=== PATIENT | female | born 1995 | race Caucasian/White ===

== ENCOUNTER 2020-02-06 22:33 | Emergency (ER) | payer OTHER, SELFPAY ==
[~2020-02-06] VITALS: Ht 162.6 cm; Wt 59.0 kg
[2020-02-06 22:58] VITALS: BP 105/69
--- NOTE | 2020-02-06 23:05 | NUR ---
PT PLACED IN TENT TO A/W MEDICAL EVALUATION.
--- NOTE | 2020-02-07 00:20 | NUR ---
PATIENT LEFT WITHOUT BEING SEEN BY DR. BUTLER. NO FURTHER CARE PROVIDED FOR PATIENT.
== END 2020-02-07 00:20 | disposition left against medical advice (07) ==
LOC: MED 22:33
DX: J02.9 Acute pharyngitis, unspecified (principal); Z53.21 Procedure and treatment not carried out due to patient leaving prior to being seen by health care provider

== ENCOUNTER 2020-05-18 01:55 | Emergency (ER) | payer OTHER, SELFPAY ==
[~2020-05-18] VITALS: Ht 162.6 cm; Wt 59.9 kg
[2020-05-18 02:02] VITALS: BP 109/67
--- NOTE | 2020-05-18 02:06 | NUR ---
PT AMBULATED TO BED 12 WITH STEADY GAIT
--- NOTE | 2020-05-18 02:12 | NUR ---
PHILIPPE CROSS AT BEDSIDE EVALUATING PT
[2020-05-18] MEDS ORDERED: NACL 0.9% 1,000 ML IV ONE (02:15)
[2020-05-18] MEDS ORDERED: ACETAMINOPHEN 325 MG TAB PO ONE (02:15)
--- NOTE | 2020-05-18 02:32 | NUR ---
25 year old female coming in for diffuse abdominal pain x 7 hours, vomiting x 1 episode and dizziness. states started only yesterday and that she is 15 weeks . G1 T0 L0. UTD prenatals. denies diarrhea or constipation. bowel sounds normoactive. abdomen firm. heart tones directly right below umbilical with 155bpm and normal. denies any other s/sx. denies any injury or trauma. connected to cardiac monitoring. pmhx: denies nka
--- NOTE | 2020-05-18 02:37 | NUR ---
pt currently states unable to provide urine. bolus running to help with providing urine.
[2020-05-18 03:17] LABS: APPEARANCE,URINE CLOUDY (CLEAR); BILIRUBIN,URINE NEGATIVE (NEGATIVE); BLOOD, URINE 3+ (NEGATIVE); COLOR,URINE YELLOW (YELLOW); LEUKOCYTE ESTERASE ,URINE 2+ (NEGATIVE); NITRITE, URINE POSITIVE (NEGATIVE); UGLUCOSE NEGATIVE (NEGATIVE)
[2020-05-18 03:27] LABS: RBC,URINE 20-50 /HPF (0-5); WBC,URINE TOO MANY TO COUNT /HPF (0-5)
[2020-05-18 03:45] LABS: BASOPHILS % (AUTO) 0.2 % (0.0-2.0); EOSINOPHILS % (AUTO) 0.4 % (0.0-4.0); HEMATOCRIT 35.3 % (36-48); HEMOGLOBIN 12.2 g/dL (12.0-16.0); LYMPHOCYTES % (AUTO) 17.2 % (20.5-51.1); MEAN CORPUSCULAR HEMOGLOBIN 30 pg (27-31); MEAN CORPUSCULAR HGB CONC 35 g/dL (33-37); MEAN CORPUSCULAR VOLUME 88.1 fL (80-94); MONOCYTES # (AUTO) 0.7 K/uL (0.8-1.0); MONOCYTES % (AUTO) 5.8 % (1.7-9.3); NEUTROPHILS # (AUTO) 8.8 K/uL (1.8-7.7); NEUTROPHILS % (AUTO) 76.4 % (42.2-75.2); PLATELET COUNT (AUTO) 199 K/uL (140-450); RED BLOOD CELL COUNT(AUTO) 4.01 MIL/uL (4.20-5.40); RED CELL DISTRIBUTION WIDTH 14.9 % (11.6-13.7); WHITE BLOOD COUNT (AUTO) 11.5 K/uL (4.8-10.8)
[2020-05-18 03:52] LABS: ALBUMIN 3.4 g/dL (3.4-5.0); CARBON DIOXIDE 23.3 mmol/L (21-32); CREATININE 0.5 mg/dL (0.6-1.3); POTASSIUM 3.3 mmol/L (3.5-5.1); TOTAL BILIRUBIN 0.2 mg/dL (0.0-1.0)
[2020-05-18] MEDS ORDERED: cefTRIAXone 1,000 MG VIAL ONE (03:53)
[2020-05-18] MEDS ORDERED: MORPHINE SULFATE 4 MG/ML SYR IVP ONE (04:30)
[2020-05-18 04:40] VITALS: BP 96/60
--- NOTE | 2020-05-18 04:40 | NUR ---
Patient discharged with v/s stable. Written and verbal after care instructions given and explained. Patient alert, oriented and verbalized understanding of instructions. Ambulatory with steady gait. All questions addressed prior to discharge. ID band removed. Patient advised to follow up with PMD. Rx of KEFLEX AND ACETAMINOPHEN given. Patient educated on indication of medication including possible reaction and side effects. Opportunity to ask questions provided and answered.
== END 2020-05-18 04:40 | disposition home or self-care (01) ==
LOC: MED 01:55
DX: O26.892 Other specified pregnancy related conditions, second trimester (principal); O23.42 Unspecified infection of urinary tract in pregnancy, second trimester; Z3A.15 15 weeks gestation of pregnancy
CPT/HCPCS: 36415; 80053; 81001; 81025; 83690; 85025; 87086; 96365; 99284; J0696; J7030